=== PATIENT | female | born 1985 | race African-American/Black ===

== ENCOUNTER 2016-09-09 11:19 | Emergency (ER) | payer OTHER ==
[~2016-09-09 11:19] MED LIST: PHENERGAN 25 MG25 M1 PO
[2016-09-09 11:23] VITALS: BP 128/73
== END 2016-09-09 13:07 | disposition left against medical advice (07) ==
LOC: ER 11:19
DX: Z53.21 Procedure and treatment not carried out due to patient leaving prior to being seen by health care provider (principal)